=== PATIENT | female | born 1950 | race Caucasian/White ===

== ENCOUNTER 2016-04-21 06:08 | Day surgery (SDC) | payer BC ==
[~2016-04-21] VITALS: Ht 154.9 cm; Wt 81.6 kg
[2016-04-21 06:48] VITALS: O2SAT 99
[2016-04-21] MEDS ORDERED: CEFAZOLIN 1 GM IVPB PREMIX 50 ML IV ONE (07:00)
[2016-04-21] MEDS ORDERED: POTASSIUM CHLORIDE 40 MEQ in NS 250 ML IV ONE (07:00)
[2016-04-21] MEDS ORDERED: POLYMYXIN 500,000/BACIT.10,000 UNITS in NS IRR 1 L IR ONE (09:10)
[2016-04-21] MEDS ORDERED: LR 1,000 ML IV SCH (10:03)
[2016-04-21] MEDS ORDERED: METOCLOPRAMIDE HCL 10 MG/2 ML VIAL IVP PRN (10:15)
[2016-04-21] MEDS ORDERED: MORPHINE 2 MG/ML INJ. SYRINGE IVP PRN ×3 (10:15)
[2016-04-21] MEDS ORDERED: HYDROmorphone 1 MG INJ. 1 MG/ML AMPUL IM PRN (10:45)
[2016-04-21 11:45] VITALS: BP 111/61; PULSE 69; RESP 16
[2016-04-21] MEDS ORDERED: HYDROcodone/ACETAMIN 5-325 MG TAB (NORCO/ VICODIN) ONE (12:21)
[2016-04-21] MEDS ORDERED: D5/0.45 NS 1,000 ML IV SCH (13:30)
[2016-04-21] MEDS ORDERED: LR 1,000 ML IV.SOLN IV ONE (14:00)
[2016-04-21] MEDS ORDERED: PROPOFOL 200MG/ 20ML VIAL (DIPRIVAN) IV ONE (14:00)
[2016-04-21] MEDS ORDERED: NEOSTIGMINE METHYLSULFATE 1 MG/ML, 10 ML VIAL ONE (14:00)
[2016-04-21] MEDS ORDERED: ROCURONIUM BROMIDE 10 MG/ML (ZEMURON) ONE (14:00)
[2016-04-21] MEDS ORDERED: WATER FOR IRRIGATION,STERILE 1,000 ML IRRIG.SOLN IR ONE (14:00)
[2016-04-21] MEDS ORDERED: MIDAZOLAM HCL 5 MG/5 ML VIAL ONE (14:00)
[2016-04-21] MEDS ORDERED: GLYCOPYRROLATE 0.2 MG/ML VIAL ONE (14:00)
[2016-04-21] MEDS ORDERED: ONDANSETRON HCL 4 MG/2 ML VIAL ONE (14:00)
[2016-04-21] MEDS ORDERED: SEVOFLURANE 15 MIN GAS INH ONE (14:00)
[2016-04-21] MEDS ORDERED: fentaNYL CITRATE 250 MCG/5 ML AMP ONE (14:00)
[2016-04-21] MEDS ORDERED: METOCLOPRAMIDE HCL 10 MG/2 ML VIAL IVP SCH (18:00)
== END 2016-04-21 13:10 | disposition home or self-care (01) ==
LOC: SDS 06:08 → SMU 06:09 → SDS 13:10
PROVIDERS: ATTEND Colon & Rectal Surgery
DX: K43.2 Incisional hernia without obstruction or gangrene (principal); E78.5 Hyperlipidemia, unspecified; E03.9 Hypothyroidism, unspecified; C56.9 Malignant neoplasm of unspecified ovary; M17.11 Unilateral primary osteoarthritis, right knee; F33.9 Major depressive disorder, recurrent, unspecified; K21.9 Gastro-esophageal reflux disease without esophagitis; M19.90 Unspecified osteoarthritis, unspecified site; Z90.49 Acquired absence of other specified parts of digestive tract; Z90.710 Acquired absence of both cervix and uterus
CPT/HCPCS: 49561; 49568; 88302; C1781; J0690; J3480; J7050; J7120; J2250; J2405; J2704; J2710; J3010; J3490